=== PATIENT | female | born 1985 | race Two or more races ===

== ENCOUNTER 2023-04-08 13:48 | Emergency (ER) | payer SELFPAY ==
[~2023-04-08] VITALS: Ht 154.9 cm; Wt 68.0 kg
[2023-04-08 13:55] VITALS: BP 113/78; TEMP 98.3
[2023-04-08] MEDS ORDERED: TDAP [DIPH/PERTUSSIS/TET] 0.5 ML VIAL IM ONE ×2 (15:00→15:11)
[2023-04-08] MEDS ORDERED: LIDOCAINE 1%-EPI 1:100,000 50 ML VIAL IJ ONE (15:00)
[2023-04-08] MEDS ORDERED: LIDOCAINE 1%-EPI 1:100,000 20 ML VIAL ONE (15:11)
[2023-04-08] MEDS ORDERED: AMOX-430 PO ×2 (16:39→16:41)
[2023-04-08] MEDS ORDERED: BACI/NEOM/POLY B OINT PKT 1 UDPKT PACKET ONE (16:59)
[2023-04-08] MEDS ORDERED: AMOX/CLAVULANATE 875 MG TABLET ONE (16:59)
[2023-04-08] MEDS ORDERED: BACI/NEOM/POLY B OINT PKT 1 UDPKT PACKET TP ONE (17:00)
[2023-04-08] MEDS ORDERED: AMOX/CLAVULANATE 875 MG TABLET PO ONE (17:00)
[2023-04-08 17:04] VITALS: O2SAT 98
== END 2023-04-08 17:05 | disposition home or self-care (01) ==
LOC: ER 13:51
DX: S61.217A Laceration without foreign body of left little finger without damage to nail, initial encounter (principal); Z79.899 Other long term (current) drug therapy; Z88.5 Allergy status to narcotic agent; W50.3XXA Accidental bite by another person, initial encounter; Y93.89 Activity, other specified; Y92.89 Other specified places as the place of occurrence of the external cause; Y99.8 Other external cause status
CPT/HCPCS: 12001; 73130; 90471; 90715; 99283; J3490

== ENCOUNTER → 2023-04-28 | Emergency (ER) | payer OTHER ==
[~2023-04-28] VITALS: Ht 154.9 cm; Wt 68.0 kg
[~2023-04-28] MED LIST: AMOX-430 PO
[2023-04-28 14:20] VITALS: BP 101/52; TEMP 98.2
[2023-04-28 14:57] VITALS: O2SAT 99
== END | disposition home or self-care (01) ==
LOC: ER 13:46
DX: S61.217D Laceration without foreign body of left little finger without damage to nail, subsequent encounter (principal); B96.89 Other specified bacterial agents as the cause of diseases classified elsewhere; Z88.8 Allergy status to other drugs, medicaments and biological substances; X58.XXXD Exposure to other specified factors, subsequent encounter

== ENCOUNTER 2025-01-27 20:14 | Emergency (ER) | payer OTHER ==
[~2025-01-27] VITALS: Ht 162.6 cm; Wt 63.5 kg
[2025-01-27 21:57] VITALS: BP 128/76; TEMP 98.5; O2SAT 98
[2025-01-27 23:08] LABS: PREGNANCY TEST URINE QUAL NEGATIVE (NEGATIVE)
[2025-01-27] MEDS ORDERED: SULF1TAB48 PO (23:24)
[2025-01-27] MEDS ORDERED: CEFA500C PO (23:24)
== END 2025-01-27 23:29 | disposition home or self-care (01) ==
LOC: ER 20:18
DX: R21 Rash and other nonspecific skin eruption (principal); Z88.5 Allergy status to narcotic agent
CPT/HCPCS: 84703-TC